=== PATIENT | female | born 1995 | race Caucasian/White ===

== ENCOUNTER 2024-03-01 12:44 | Emergency (ER) | payer BC, SELFPAY ==
[2024-03-01 12:44] VITALS: BMI 24.6
[2024-03-01 12:45] VITALS: BP 104/79
--- NOTE | 2024-03-01 13:41 | ED.GENMED ---
History of Present Illness
<Nii Spencer MD - Last Filed: 03/01/24 13:43>
General
Chief Complaint: Abdominal Symptoms
Source: patient
Exam Limitations: none
Time Seen by Provider: 03/01/24 13:22
Travel History
Have you had any contact with someone who has COVID-19?: No
Do you have any symptoms of coronavirus? Fever > 100 degrees, chills, cough, shortness of breath, sore throat, loss of taste or smell, muscle aches, or headache?: No
History of Present Illness
History of Present Illness:
28-year-old female started last evening nausea vomiting diarrhea and upper abdominal pain. Patient's boyfriend with similar symptoms. No unusual travel history. No unusual food ingestion. No recent antibiotics. Symptoms are moderate.
Past History
<Nii Spencer MD - Last Filed: 03/01/24 13:43>
Past History
ED Past Medical History: GERD
ED Past Surgical History: Orthopedic
Social History
Personal: Other (Engaged)
Review of Systems
<Nii Spencer MD - Last Filed: 03/01/24 13:43>
Review of Systems
All Other Systems: Not applicable
Constitutional: Denies fever
Respiratory: Reports no symptoms
Cardiac: Reports no symptoms
Phy Exam
<Nii Spencer MD - Last Filed: 03/01/24 13:43>
Physical Exam
Physical Exam:
GENERAL: Alert and oriented in no apparent distress
EYE: Orbits normal.
NECK: Supple
CARDIAC: Regular rate and rhythm without any obvious murmurs.
LUNGS: Clear breath sounds,normal
ABDOMEN: Soft, bowel sounds present. Mild epigastric tenderness. No rebound or guarding no mass or hernia. No CVA tenderness
NEUROLOGICAL: Alert and oriented , grossly non-focal
SKIN: Warm and dry, no rash or lesion, no discoloration, skin intact.
MUSCULOSKELETAL: No edema,no deformity.Good color
PSYCH: Normal and appropriate interaction.
Course
<Nii Spencer MD - Last Filed: 03/01/24 13:43>
Orders/Labs/Results
Orders:
Orders
03/01/24 13:22
IV Insert/Care/Rem.- Treatment PRN
Urinalysis Reflex To Culture Urgent
Date Specimen was Collected: 03/01/24
Time Specimen was Collected: 13:35
0.9% Sodium Chloride 1000 ml [Nss] 1,000 ml IV BOLUS
Test Result ONCE
03/01/24 13:28
Norovirus by PCR Urgent
[facility] Source: Feces/Stool
Specimen Description:
Date Specimen was Collected: 03/01/24
Time Specimen was Collected: 13:34
STOOL [C difficile Antigen & Toxins] Urgent
[facility] Source: Feces/Stool
Specimen Description:
Date Specimen was Collected: 03/01/24
Time Specimen was Collected: 13:34
Stool Culture Urgent
[facility] Source: Feces/Stool
Specimen Description:
Date Specimen was Collected: 03/01/24
Time Specimen was Collected: 13:35
Ketorolac [Toradol] 15 mg IV NOW STA
03/01/24 13:29
Ondansetron Injectable [Zofran] 4 mg IV NOW STA
03/01/24 14:05
Complete Blood Count/With Diff Urgent
Comprehensive Metabolic Panel Urgent
HCG, Serum Qualitative Screen Urgent
Lipase Urgent
03/01/24 15:45
Acetaminophen [Tylenol] 1,000 mg PO NOW STA
Abnormal Lab Results
03/01/24
14:05
RBC 3.90 L 10^6/uL
(4.20-5.40)
Hct 33.8 L %
(37.0-47.0)
MCH 31.5 H pg
(27.0-31.0)
Absolute Lymphs (auto) 0.5 L 10^3/uL
(1.2-3.4)
Neutrophils % 84.5 H %
(42.2-75.2)
Lymphocytes % 9.3 L %
(20.5-51.1)
BUN 21 H mg/dl
(7-17)
03/01/24 14:05
03/01/24 14:05
Vital Signs
Initial and Last Documented VS:
Initial Vital Signs
Temp Pulse Resp BP Pulse Ox
98.1 F 107 16 104/79 97
03/01/24 12:45 03/01/24 12:45 03/01/24 12:45 03/01/24 12:45 03/01/24 12:45
Last Documented Vital Signs
Temp Pulse Resp BP Pulse Ox
98.1 F 94 18 107/70 98
03/01/24 12:45 03/01/24 14:20 03/01/24 14:20 03/01/24 14:20 03/01/24 14:20
<Juan Cisneros, DO - Last Filed: 03/01/24 15:48>
Orders/Labs/Results
Orders:
Orders
03/01/24 13:22
IV Insert/Care/Rem.- Treatment PRN
Urinalysis Reflex To Culture Urgent
Date Specimen was Collected: 03/01/24
Time Specimen was Collected: 13:35
0.9% Sodium Chloride 1000 ml [Nss] 1,000 ml IV BOLUS
Test Result ONCE
03/01/24 13:28
Norovirus by PCR Urgent
[facility] Source: Feces/Stool
Specimen Description:
Date Specimen was Collected: 03/01/24
Time Specimen was Collected: 13:34
STOOL [C difficile Antigen & Toxins] Urgent
[facility] Source: Feces/Stool
Specimen Description:
Date Specimen was Collected: 03/01/24
Time Specimen was Collected: 13:34
Stool Culture Urgent
[facility] Source: Feces/Stool
Specimen Description:
Date Specimen was Collected: 03/01/24
Time Specimen was Collected: 13:35
Ketorolac [Toradol] 15 mg IV NOW STA
03/01/24 13:29
Ondansetron Injectable [Zofran] 4 mg IV NOW STA
03/01/24 14:05
Complete Blood Count/With Diff Urgent
Comprehensive Metabolic Panel Urgent
HCG, Serum Qualitative Screen Urgent
Lipase Urgent
03/01/24 15:45
Acetaminophen [Tylenol] 1,000 mg PO NOW STA
Abnormal Lab Results
03/01/24
14:05
RBC 3.90 L 10^6/uL
(4.20-5.40)
Hct 33.8 L %
(37.0-47.0)
MCH 31.5 H pg
(27.0-31.0)
Absolute Lymphs (auto) 0.5 L 10^3/uL
(1.2-3.4)
Neutrophils % 84.5 H %
(42.2-75.2)
Lymphocytes % 9.3 L %
(20.5-51.1)
BUN 21 H mg/dl
(7-17)
03/01/24 14:05
03/01/24 14:05
Vital Signs
Initial and Last Documented VS:
Initial Vital Signs
Temp Pulse Resp BP Pulse Ox
98.1 F 107 16 104/79 97
03/01/24 12:45 03/01/24 12:45 03/01/24 12:45 03/01/24 12:45 03/01/24 12:45
Last Documented Vital Signs
Temp Pulse Resp BP Pulse Ox
98.1 F 94 18 107/70 98
03/01/24 12:45 03/01/24 14:20 03/01/24 14:20 03/01/24 14:20 03/01/24 14:20
<Nii Spencer MD - Last Filed: 03/01/24 13:43>
MDM/Problems Addressed
Differential Diagnosis Includes:
Nausea vomiting diarrhea and epigastric pain. Nonsurgical abdomen clinically. Likely enteritis or colitis. Patient's boyfriend/fianc� with the same symptoms. Workup in progress.
<Juan Cisneros DO - Last Filed: 03/01/24 15:48>
*Critical Care Note
Total Time (30-74mins, 75-104mins- exclusive of procedures): Not Applicable
<Juan Cisneros DO - Last Filed: 03/01/24 15:48>
Update Note
Update Note:
3:45 PM signout pending reevaluation patient resting comfortably states she is feeling better no longer nauseous still has some body aches, will try some p.o. fluids and acetaminophen on exam she is nontoxic her abdomen is soft and nontender
ED Attending Note
<Nii Spencer MD - Last Filed: 03/01/24 13:43>
-
Portions of this chart may have been created with voice recognition software.� Occasional wrong word or��sound alike� substitutions may have occurred due to the inherent limitations of voice recognition software.
Discharge Plan
Departure
Patient Disposition: Home (Routine Discharge)
Date of Disposition: 03/01/24
Time of Disposition: 15:45
Patient with high blood pressure during this ER visit?: No
Condition: Good
Discharge Problem:
Nausea vomiting and diarrhea
Instructions: [place] Diet, Diarrhea in adolescents and adults, Nausea and Vomiting, Adult (DC)
Referrals:
Deepali Alonso DO [Family Provider] -
Interventions
Interventions:
*Risk Screen - Suicide Last Done: 03/01/24 14:28
*General Assessment Last Done: 03/01/24 14:28
*Neglect/Abuse Screening Last Done: 03/01/24 14:28
*ED COVID-19 Vaccine History Last Done: 03/01/24 12:45
WR-Fxlbcr-Vitmcgsczx Assessment Last Done: 03/01/24 14:28
Discharge Date and Time
Print Language: KHMER
[2024-03-01] MEDS: NSS 1000 IV (14:10)
[2024-03-01] MEDS: TORADOL 15 MG IV (14:10)
[2024-03-01] MEDS: ZOFRAN 4 MG IV (14:11)
[2024-03-01 14:16] LABS: % Basophils 0.4 % (0-2); % Immature Granulocytes 0.2 % (0-0.5); % Lymphocytes 9.3 % (20.5-51.1); % Monocytes 5.6 % (1.7-9.3); % Neutrophils 84.5 % (42.2-75.2); Absolute Lymphocytes 0.5 10^3/uL (1.2-3.4); Absolute Monocytes 0.3 10^3/uL (0.1-0.6); Absolute Neutrophils 4.1 10^3/uL (1.4-6.5); Hematocrit 33.8 % (37.0-47.0); Hemoglobin 12.3 g/dL (12.0-16.0); Mean Corp Hgb Conc. 36.4 g/dL (33.0-37.0); Mean Corpuscular Hgb 31.5 pg (27.0-31.0); Mean Corpuscular Volume 86.7 fL (81.0-99.0); Mean Platelet Volume 9.6 fL (7.4-10.4); Nucleated Red Blood Cells % 0 %; Platelet Count 148 10^3/uL (130-400); Red Cell Dist. Width 11.8 % (11.5-14.5); White Blood Cell Count 4.8 10^3/uL (4.8-10.8)
[2024-03-01 14:20] VITALS: BP 107/70
[2024-03-01 14:44] LABS: ALT (SGPT) 22 U/L (0-35); AST (SGOT) 22 U/L (14-36); Albumin 4.4 g/dl (3.5-5.0); Alkaline Phosphatase 56 U/L (38-126); Blood Urea Nitrogen 21 mg/dl (7-17); Calcium 9.5 mg/dl (8.4-10.2); Carbon Dioxide 24 mmol/L (22-30); Chloride 103 mmol/L (98-107); Estimated Creatinine Clearance 78 ml/min; Glucose 92 mg/dl (70-99); Potassium 3.7 mmol/L (3.5-5.1); Sodium 136 mmol/L (135-145); Total Bilirubin 1.1 mg/dl (0.2-1.3); Total Protein 7.2 g/dl (6.3-8.2); eGFR > 60.00
[2024-03-01 14:58] LABS: HCG, Serum Qualitative Screen Negative
[2024-03-01 15:24] LABS: Lipase 47 U/L (23-300)
[2024-03-01] MEDS: TYLENOL 1000 MG PO (15:48)
== END 2024-03-01 16:05 | disposition home or self-care (01) ==
LOC: EMR 12:44
PROVIDERS: Emergency Medicine; EMERGENCY PHYSICIAN Emergency Medicine; FAMILY PHYSICIAN Family Medicine
DX: R11.2 Nausea with vomiting, unspecified (principal); R19.7 Diarrhea, unspecified
CPT/HCPCS: 99284; 96374; 96375; 96361 ×2; 80053; 83690; 84703; 85025; 87045; 87046; 87324; 87427; 87449; 87798